=== PATIENT | female | born 1985 | race African-American/Black ===

== ENCOUNTER 2017-05-10 14:57 | Inpatient (IN) | payer MEDICAID ==
[~2017-05-10] VITALS: Ht 172.7 cm; Wt 167.4 kg
[2017-05-10 15:00] VITALS: BP_SYST 151
--- NOTE | 2017-05-10 15:00 | NUR ---
Pt placed to ER bed 05, to gown, to court monitor.
--- NOTE | 2017-05-10 15:04 | NUR ---
Placed in room 5. Placed on cardiac rehabilitation specialist, blood pressure machine and pulse oximeter. To gown for exam. Side rails up. Report given to Melecio GRANADO.
--- NOTE | 2017-05-10 15:10 | NUR ---
ER at bedside examining patient.
[2017-05-10] MEDS ORDERED: ASPIRIN 325 MG TABLET PO ONE (15:15)
--- NOTE | 2017-05-10 15:20 | NUR ---
PT PRESENTS TO ED C/O CP RADIATIING TO L ARM .PT DENIES SOB.PT ST ON EKG. PT DENIES SIGNIFICANT MED HX.
[2017-05-10 15:42] LABS: BASOPHILS % (AUTO) 0.2 % (0.0-2.0); EOSINOPHILS # (AUTO) 0.1 K/uL (0.0-0.4); HEMATOCRIT 38.3 % (36-48); HEMOGLOBIN 12.4 g/dL (12.0-16.0); LYMPHOCYTES # (AUTO) 2.9 K/uL (1.0-5.5); LYMPHOCYTES % (AUTO) 24.1 % (20.5-51.5); MEAN CORPUSCULAR HEMOGLOBIN 23 pg (27-31); MEAN CORPUSCULAR HGB CONC 32 % (32-36); MEAN CORPUSCULAR VOLUME 70 fL (79.0-98.0); MONOCYTES # (AUTO) 0.5 K/uL (0.0-1.0); MONOCYTES % (AUTO) 4.4 % (1.7-9.3); NEUTROPHILS # (AUTO) 8.7 K/uL (1.8-7.7); NEUTROPHILS % (AUTO) 70.3 % (40.0-70.0); PLATELET COUNT (AUTO) 271 K/uL (130-430); RED BLOOD CELL COUNT(AUTO) 5.49 MIL/uL (4.2-6.2); RED CELL DISTRIBUTION WIDTH 17.2 % (9.0-15.0); WHITE BLOOD COUNT (AUTO) 12.2 K/uL (4.8-10.8)
[2017-05-10 15:57] LABS: ALBUMIN 3.2 g/dL (3.4-4.8); CALCIUM 8.9 mg/dL (8.4-11.0); CREATININE 1.04 mg/dL (0.55-1.30); INR 1.1 (0.8-1.2); POTASSIUM 3.9 mmol/L (3.5-5.1); PROTHROMBIN TIME 11.5 SECS (9.5-12.5); TOTAL BILIRUBIN 0.3 mg/dL (0.0-1.0); TOTAL PROTEIN, SERUM 7.4 g/dL (6.4-8.3)
--- NOTE | 2017-05-10 16:30 | NUR ---
PT AMBULATED TO RESTROOM TOLERATED WELL.PT REPORTS CP TOLERABLE AT 3/10.
[2017-05-10 17:14] LABS: BILIRUBIN,URINE NEGATIVE (NEGATIVE); BLOOD, URINE 3+ (NEGATIVE); CLARITY/URINE CLOUDY (CLEAR); COLOR,URINE YELLOW (YELLOW); GLUCOSE,URINE TRACE (NEGATIVE); KETONES,URINE NEGATIVE (NEGATIVE); LEUKOCYTE ESTERASE ,URINE NEGATIVE (NEGATIVE); NITRITE, URINE POSITIVE (NEGATIVE); PROTEIN URINE 1+ (NEGATIVE)
--- NOTE | 2017-05-10 17:25 | NUR ---
PT CONTINUES TO REPORT PAIN TOLERABLE W/O SOB
[2017-05-10 17:47] LABS: BACTERIA,URINE MODERATE /HPF (None Seen); MUCUS,URINE 1+ /LPF (None Seen); YEAST,URINE Few /HPF (None Seen)
[2017-05-10 17:53] LABS: BARBITURATE, URINE NEGATIVE (NEG <=200); BENZODIAZEPINE, URINE NEGATIVE (NEG <=150); CANNABINOID, URINE NEGATIVE (NEG <=50); COCAINE, URINE NEGATIVE (NEG <=150); METHAMPHETAMINES SCREEN,URINE NEGATIVE (NEG <=500); OPIATE, URINE NEGATIVE (NEG <=100); PHENCYCLIDINE SCREEN,URINE NEGATIVE (NEG <=25); UR TRICYCLIC ANTIDEPRESSANTS NEGATIVE (NEG <=300); URINE AMPHETAMINE NEGATIVE (NEG <=500); URINE METHADONE NEGATIVE (NEG <=200); URINE OXYCODONE SCREEN NEGATIVE (NEG <=100); URINE PROPOXYPHENE SCREEN NEGATIVE (NEG <=300)
--- NOTE | 2017-05-10 18:00 | NUR ---
Patient will be admitted to care of . Admitted to TELEMETRY unit. Will go to room 110B. Belongings list completed. Summary report printed. Report will be given at bedside.
--- NOTE | 2017-05-10 18:07 | NUR ---
ADMISSION NOTE Received patient from ER via [facility], received report from Melecio GRANADO. Patient admitted with diagnosis of Chest pain. Patient oriented to hospital routine, call light, toileting and safety-patient verbalized understanding.
[2017-05-10 18:15] VITALS: BP_SYST 121
--- NOTE | 2017-05-10 19:00 | NUR ---
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
--- NOTE | 2017-05-10 19:17 | NUR ---
initial notes: received pt on bed, alert, awake, oriented. no distress. no sob, no sign o pain. talking to cellphone. call light in reach. safety on. will monitor
[2017-05-10 21:18] VITALS: BP_SYST 136
--- NOTE | 2017-05-10 22:37 | NUR ---
ROUND NOTES: AWAKE, ALERT.NO DISTRESS. CAME BACK FROM BATHROOM AND READY TO SLEEP. NEEDS ATTENDED. CALL LIGHT IN REACH. WILL MONITOR.
--- NOTE | 2017-05-10 22:49 | NUR ---
DR. MARISOL QUEZADA. INFORM MD ABOUT THE WBC AND UA RESULT.
[2017-05-11] VITALS: BP_SYST 123
--- NOTE | 2017-05-11 00:07 | NUR ---
ROUND NOTES: PT IS SLEEPING, NO DISTRESS. NO PAIN. VITAL SIGN ARE STABLE. CALL LIGHT IN REACH. WILL MONITOR.
--- NOTE | 2017-05-11 02:07 | NUR ---
ROUND NOTES: RESTING ON BED. NO SOB. NOT DISTRESS. CALL LIGHT IN REACH. LOW BED POSITION. WILL MONITOR.
[2017-05-11 03:55] VITALS: BP_SYST 129
--- NOTE | 2017-05-11 04:09 | NUR ---
ROUND NOTES: PT IS SLEEPING ON HER SIDE, NO DISTRESS. NO PAIN, NO SOB. VITAL SIGN ARE STABLE. CALL LIGHT IN REACH. WILL MONITOR.
--- NOTE | 2017-05-11 06:13 | NUR ---
ROUND NOTES: AWAKE, ALERT. ASSISTED TO BATHROOM AND BACK TO BED. NO PAIN, NO SOB. NEEDS ATTENDED. CALL LIGHT IN REACH. WILL MONITOR.
--- NOTE | 2017-05-11 06:58 | NUR ---
CLOSING: PT IS SLEEPING. NO PAIN. NO SOB. STABLE. NEEDS ATTENDED. SIDE RAILS UP. CALL LIGHT IN REACH. WILL GIVE BEDSIDE REPORT TO AM RN.
[2017-05-11] MEDS: ASPIRIN 325 MG TABLET (ECOTRIN) PO SCH ×2 (07:44→09:01)
--- NOTE | 2017-05-11 08:00 | NUR ---
initial notes rec patient asleep and arousable to stimuli.ivl on the l wrist area intact. no infiltration noted. denies any chest pain . no sob noted. resp easy and unlabored. no sob noted. fall/ safet precaution reinforced. bed in low position and side rails up and locked. call light within reached and knows when to call for assists.
--- NOTE | 2017-05-11 10:00 | NUR ---
rounds seen bu dr giang and with orders. awaiting for dr chaudhry to see patient for consult. no sob noted. martin light within reached.
[2017-05-11] MEDS ORDERED: METOPROLOL SUCCINATE 50 MG TAB.SR.24H (TOPROL XL) PO ONE (11:00)
[2017-05-11 11:32] VITALS: BP_SYST 131
--- NOTE | 2017-05-11 12:00 | NUR ---
rounds denies pain at this time. no sob noted.
--- NOTE | 2017-05-11 12:25 | NUR ---
[facility] Note Provided patient a note for school attesting to her hospitalization.
--- NOTE | 2017-05-11 14:00 | NUR ---
rounds dr de luna was called re echocardiogram result. left message to sec and will call back. pt wants to go home .
[2017-05-11 15:27] VITALS: BP_SYST 131
--- NOTE | 2017-05-11 16:00 | NUR ---
closing notes pt went home and back to sober living. was picked up by a friend. id band was removed and iv lock. instructed to go see pmd as per dr giang to see re elevated blood sugar katya. also provided an h and p of dr de luna to show for a heart med. stable, needs attended and no sob noted.
[2017-05-12] MEDS ORDERED: METOPROLOL SUCCINATE 50 MG TAB.SR.24H (TOPROL XL) PO SCH (09:00)
== END 2017-05-11 16:00 | disposition home or self-care (01) | DRG 723 ==
LOC: SED 14:57 → STU 17:38
PROVIDERS: ADMIT Internal Medicine Hospice and Palliative Medicine; ATTEND Internal Medicine Hospice and Palliative Medicine
DX: B34.9 Viral infection, unspecified (principal); I42.9 Cardiomyopathy, unspecified; R03.0 Elevated blood-pressure reading, without diagnosis of hypertension; J45.909 Unspecified asthma, uncomplicated; E05.90 Thyrotoxicosis, unspecified without thyrotoxic crisis or storm; F17.210 Nicotine dependence, cigarettes, uncomplicated; E66.01 Morbid (severe) obesity due to excess calories; Z68.43 Body mass index [BMI] 50.0-59.9, adult; Z83.3 Family history of diabetes mellitus; Z87.01 Personal history of pneumonia (recurrent); Z82.49 Family history of ischemic heart disease and other diseases of the circulatory system; Z84.89 Family history of other specified conditions; Z71.51 Drug abuse counseling and surveillance of drug abuser; Z71.3 Dietary counseling and surveillance
CPT/HCPCS: 36415; 71010; 80053; 80061; 80307; 81000-TC; 83880; 84443-TC; 84484; 84703; 85025; 85379; 85610-TC; 85730-TC; 87086; 93005; 93306; 99285